=== PATIENT | female | born 1990 | race African-American/Black ===

== ENCOUNTER 2025-04-03 11:21 | Emergency (ER) | payer OTHER ==
[~2025-04-03] VITALS: Ht 167.6 cm; Wt 63.0 kg
[2025-04-03 11:45] VITALS: BP 110/68; PULSE 105; RESP 18; TEMP 98.4; O2SAT 98
[2025-04-03] MEDS ORDERED: CYCL-448 PO (14:35)
== END 2025-04-03 14:57 | disposition home or self-care (01) ==
LOC: EMS 11:21
DX: S16.1XXA Strain of muscle, fascia and tendon at neck level, initial encounter (principal); V89.2XXA Person injured in unspecified motor-vehicle accident, traffic, initial encounter; Y93.89 Activity, other specified; Y92.410 Unspecified street and highway as the place of occurrence of the external cause; Y99.8 Other external cause status
CPT/HCPCS: 72040; 72100; 99284; 73562-TC; Z7502